=== PATIENT | male | born 1955 | race Caucasian/White ===

== ENCOUNTER → 2021-10-07 | Outpatient (CLI) | payer MEDICARE ==
[~2021-10-07] MED LIST: ASPIRIN 81M81 MG/TA2 PO; LIPITOR 80MG80 MG PO; NITROQUICK0.4 MG SL; NO HOME MEDICATIONS; PLAVIX 75MG TAB75 MG PO; PRINIVIL5 MG PO; TOPROL XL 25MG25 MG PO
== END ==
LOC: ZCOL.LAB 10:38
DX: I25.10 Atherosclerotic heart disease of native coronary artery without angina pectoris (principal); I25.82 Chronic total occlusion of coronary artery; I25.119 Atherosclerotic heart disease of native coronary artery with unspecified angina pectoris; Z20.822 Contact with and (suspected) exposure to COVID-19